=== PATIENT | female | born 1995 | race Caucasian/White ===

== ENCOUNTER 2018-06-28 20:00 | Inpatient (IN) | payer OTHER ==
[2018-07-02] MEDS ORDERED: Ondansetron PF 4 MG/2 ML Vial IVP PRN (21:35)
[2018-07-02] MEDS ORDERED: Butorphanol Tartrate 1 MG/ML VIAL SLOW IVP PRN (21:35)
[2018-07-02] MEDS ORDERED: NS / Oxytocin 40 units/1000ml 1,000 ML IV PRN (21:35)
[2018-07-02] MEDS ORDERED: Acetaminophen 500 MG TAB PO PRN (21:35)
[2018-07-02] MEDS ORDERED: Diphenoxylate HCl/Atropine Tablet PO PRN (21:35)
[2018-07-02] MEDS ORDERED: Misoprostol 200 MCG TAB PR PRN (21:35)
[2018-07-02] MEDS ORDERED: Carboprost 250 MCG/ML AMP IM PRN (21:35)
[2018-07-02] MEDS ORDERED: HYDROcodone/Acetaminophen 5/325 mg Tablet PO PRN (21:35)
[2018-07-02] MEDS ORDERED: Promethazine HCl 25 MG/ML VIAL IM PRN (21:35)
[2018-07-02] MEDS ORDERED: Ibuprofen 800 MG TAB PO PRN (21:35)
[2018-07-02] MEDS ORDERED: Lidocaine 1% (PF) 30 ML VIAL SC PRN (21:35)
[2018-07-02 21:55] VITALS: BMI 35.6
[2018-07-02] MEDS: Lactated Ringer's 1,000 ML IV SCH (22:20)
[2018-07-02 22:37] LABS: Hemoglobin 10.6 g/dL (12.0-16.0); Mean Corpuscular HGB CONC 33.8 g/dL (32.0-36.0); Mean Corpuscular Hemoglobin 29.1 pg (27.0-31.0); Mean Corpuscular Volume 86.1 fL (78.0-98.0); Mean Platelet Volume 10.2 fL (7.4-10.4); Platelet Count 287 thou/uL (130-400); RBC Distribution Width 11.9 % (11.5-14.5); Red Blood Cell (RBC) Count 3.64 mill/uL (4.20-5.40)
[2018-07-02] MEDS: Misoprostol 100 MCG TAB VAG SCH (22:43)
[2018-07-02] MEDS: NS w/ Oxytocin 10 units 500 ML IV SCH (22:44)
[2018-07-02 22:51] LABS: ALT (SGPT) 18 U/L (8-55); AST (SGOT) 13 U/L (5-34); Albumin 3.2 g/dL (3.5-5.0); Alkaline Phosphatase 201 U/L (40-150); Anion Gap 15 mmol/L (10-20); BUN (Urea Nitrogen) 9 mg/dL (7.0-18.7); Bilirubin, Total 0.3 mg/dL (0.2-1.2); Calc. Creatinine Clearance 172 mL/min (70-130); Carbon Dioxide 19 mmol/L (22-29); Chloride 105 mmol/L (98-107); Estimated GFR-MDRD Greater than 90; Globulin 2.7 g/dL (2.4-3.5); Glucose 104 mg/dL (70-105); Potassium 4.3 mmol/L (3.5-5.1); Protein, Total 5.9 g/dL (6.0-8.3); Sodium 135 mmol/L (136-145)
[2018-07-02 23:09] LABS: HBSAg Index 0.23 S/CO (0-0.99); Hep B Surf Ag Non-Reactive S/CO (NonReactive); Syphilis Antibody Nonreactive (Nonreactive); Syphilis Antibody Index 0.03 S/CO (<1.00 Non-Reactive)
[2018-07-03] MEDS: Misoprostol 100 MCG TAB VAG SCH ×5 (04:23→16:30)
[2018-07-03] MEDS: Lactated Ringer's 1,000 ML IV SCH ×2 (04:23→08:41)
[2018-07-03] MEDS: NS w/ Oxytocin 10 units 500 ML IV SCH (05:07)
--- NOTE | 2018-07-03 07:54 | PDOC.LDHP ---
Labor and Delivery H&P Chief complaint: scheduled induction HPI: 22yo at 37w6d by LMP for IOL 2/2 CHTN and single umbilical artery with increasing BP in clinic.s/p 1 dose cytotec overnight, +painful ctx Current gestational age (weeks): 37 Due date: 07/18/18 Dating criteria: last menstrual period Grav: 1 Para: 0 Abnormal US findings: Yes (single umbilical artery) Past Medical History: CHTN no meds, hypothyroid Current medications: pre-svitlana vitamins, other (levothyroxine 75mcg) Previous surgical history: none Allergies/Adverse Reactions: Allergies Allergy/AdvReac Type Severity Reaction Status Date / Time No Known Drug Allergies Allergy Verified 07/02/18 21:38 Social history: none - Physical Exam Vital signs reviewed and normal: yes General: NAD Heart: RRR Lungs: CTAB Abdomen: gravid Extremeties: no edema FHT: category 1 (low baseline fht) [place] contractions every: 3-5min - Vaginal Exam cm dilated: 3 Effacement: 75% Station: -2 - OB Labs Blood type: O RH: positive Antibody Screen: negative HIV: negative RPR: negative HEPSAg: negative 1 hour GCT: positive 3 hour GTT: negative GBS: negative Urine drug screen: negative Rubella: immune - Assessment L&D Assessment: medically indicated induction - Plan Plan: admit to L&D, cervical ripening, labor augmentation if indicated, informed consent obtained, anesthesia consult for pain management
[2018-07-03] MEDS ORDERED: Fentanyl 4 mcg/Bup 0.1% Cadd 100 ML ONE ×2 (08:01→16:23)
[2018-07-03] MEDS ORDERED: Naloxone HCl 0.4 mg/ml Vial IVP PRN ×2 (08:44)
[2018-07-03] MEDS ORDERED: Ondansetron PF 4 MG/2 ML Vial IVP PRN ×2 (08:44→18:19)
[2018-07-03] MEDS ORDERED: Acetaminophen 325 MG TAB PO PRN (08:44)
[2018-07-03] MEDS ORDERED: ePHEDrine/0.9% NaCl/PF SYRINGE 50 mg/10 ml SLOW IVP PRN (08:44)
[2018-07-03] MEDS ORDERED: Lactated Ringer's 500 ML IV PRN (08:44)
[2018-07-03] MEDS ORDERED: Eucerin (Mineral Oil/Petrolatum,White) 30 gm Jar TOP PRN (08:44)
[2018-07-03] MEDS ORDERED: diphenhydrAMINE 50 MG/ML VIAL IVP PRN (08:44)
[2018-07-03] MEDS ORDERED: Promethazine HCl 25 MG/ML VIAL IM PRN (08:44)
[2018-07-03] MEDS ORDERED: Fentanyl 4 mcg/Bupivacaine 0.1% Cassette 100 ML EPIDURAL SCH (08:45)
[2018-07-03] MEDS ORDERED: Communication Order-Pharmacy FS SCH (08:45)
[2018-07-03] MEDS ORDERED: Bupivacaine 0.25% HCL 30 ML VIAL ONE (11:11)
[2018-07-03] MEDS ORDERED: Bupivacaine/Epinephrine 0.25% 30 ML VIAL ONE (11:11)
--- NOTE | 2018-07-03 13:18 | PDOC.LDPN ---
Labor & Delivery Progress Note - Subjective Subjective: comfortable - Objective Vital signs reviewed and normal: yes General: NAD Uterine fundus: non tender Dilation: 4 Effacement: 90% Station: -2 (at 1124 by RN) FHT: category 2, late decelerations (occasional (<50%), overall mod variability with accels) [place] contractions every: 2-5min Plan: pitocin for augmentation (IUPC in place, titrate to MVU as tolerated, inadequate pattern now)
--- NOTE | 2018-07-03 18:00 | PDOC.OPDEL ---
OB Operative/Delivery Note Delivery Dr/Surgeon: Ciera Assist: n/a Pre-Delivery Diagnosis: medically indicated induction Procedure/Post Delivery Dx: spontaneous vaginal delivery Weeks gestation: 37 Anesthesia: epidural - Findings A Sex: male Weight: 6 lb 1 oz - 1 min: 9 - 5 min: 9 - Additional Findings/Plan Placenta delivered: spontaneous Repaired Obstetrical Laceration: 1st degree (repaired for hemostasis with 2-0 vicryl) Estimated blood loss: 96cc qbl Compilations/Other Findings: 2VC noted Post delivery plan: routine recovery
[2018-07-03] MEDS ORDERED: Lanolin Ointment 7 GM TUBE TOP PRN (18:19)
[2018-07-03] MEDS ORDERED: Benzocaine/Menthol 20-0.5% 60 ML CAN TOP PRN (18:19)
[2018-07-03] MEDS ORDERED: HYDROcodone/Acetaminophen 5/325 mg Tablet PO PRN ×2 (18:19)
[2018-07-03] MEDS ORDERED: diphenhydrAMINE 25 MG CAP PO PRN (18:19)
[2018-07-03] MEDS ORDERED: Preparation H Ointment 28 GM TUBE PR PRN (18:19)
[2018-07-03] MEDS ORDERED: Bisacodyl 10 MG SUPP PR PRN (18:19)
[2018-07-03] MEDS ORDERED: NS / Oxytocin 40 units/1000ml 1,000 ML IV SCH (18:19)
[2018-07-03] MEDS ORDERED: Milk Of Magnesia 30 ML UDCUP PO PRN (18:19)
[2018-07-03] MEDS: Docusate Calcium (SURFAK) 240 MG CAP PO SCH ×2 (21:48→21:49)
[2018-07-03] MEDS: Ibuprofen 800 MG TAB PO SCH (21:49)
[2018-07-04] MEDS: Ibuprofen 800 MG TAB PO SCH ×3 (05:36→21:18)
[2018-07-04] MEDS: Ferrous Sulfate 325 MG TAB PO SCH ×3 (07:37→21:19)
--- NOTE | 2018-07-04 07:47 | PRG ---
DATE OF SERVICE: 07/04/2018 SUBJECTIVE: The patient is day #1, status post term spontaneous vaginal delivery last night. She is reporting this morning. No complaints. She is tolerating p.o., voiding on her own, having decreased lochia and good pain control. OBJECTIVE: VITAL SIGNS: Blood pressure is 111/70, temperature 97.6, pulse of 70, respiratory rate of 18. GENERAL: She appears to be in no acute distress. She is alert, oriented, cooperative, and pleasant to interact with. HEAD: Normocephalic, atraumatic. ABDOMEN: Fundus is firm. Incision is clean, dry, and intact. ASSESSMENT AND PLAN: The patient is day #1, status post a term spontaneous vaginal delivery. We will continue in-house care until tomorrow and anticipate discharge then. Job ID: [id number]
[2018-07-04 08:18] LABS: Hemoglobin 9.9 g/dL (12.0-16.0); Mean Corpuscular HGB CONC 33.5 g/dL (32.0-36.0); Mean Corpuscular Hemoglobin 29.4 pg (27.0-31.0); Mean Corpuscular Volume 87.9 fL (78.0-98.0); Mean Platelet Volume 9.8 fL (7.4-10.4); Platelet Count 234 thou/uL (130-400); RBC Distribution Width 11.9 % (11.5-14.5); Red Blood Cell (RBC) Count 3.38 mill/uL (4.20-5.40); White Blood Cell (WBC) Count 11.9 thou/uL (4.8-10.8)
[2018-07-04] MEDS ORDERED: Adacel (T-DAP) 0.5 ML SYRINGE IM ONE (09:00)
[2018-07-04] MEDS: Docusate Calcium (SURFAK) 240 MG CAP PO SCH ×2 (09:31→21:18)
[2018-07-04] MEDS: Prenatal Vitamin 1 TAB PO SCH (09:32)
[2018-07-05] MEDS: Ibuprofen 800 MG TAB PO SCH (05:53)
[2018-07-05 08:25] VITALS: BP 127/82; TEMP 97.8
[2018-07-05] MEDS: Docusate Calcium (SURFAK) 240 MG CAP PO SCH (09:49)
[2018-07-05] MEDS: Ferrous Sulfate 325 MG TAB PO SCH (09:49)
[2018-07-05] MEDS: Prenatal Vitamin 1 TAB PO SCH (09:49)
== END 2018-07-05 12:50 | disposition home or self-care (01) | DRG 807 ==
LOC: L&D 07-02 20:48 → 3SW 07-03 20:06
PROVIDERS: ADMIT Student in an Organized Health Care Education/Training Program; ATTEND Student in an Organized Health Care Education/Training Program
PROC: 10E0XZZ Delivery of Products of Conception, External Approach (ICD-10-PCS; principal; 2018-07-03)
PROC: 10907ZC Drainage of Amniotic Fluid, Therapeutic from Products of Conception, Via Natural or Artificial Opening (ICD-10-PCS; 2018-07-03)
PROC: 3E033VJ Introduction of Other Hormone into Peripheral Vein, Percutaneous Approach (ICD-10-PCS; 2018-07-03)
PROC: 3E0P7VZ Introduction of Hormone into Female Reproductive, Via Natural or Artificial Opening (ICD-10-PCS; 2018-07-03)
PROC: 0HQ9XZZ Repair Perineum Skin, External Approach (ICD-10-PCS; 2018-07-03)
DX: O10.92 Unspecified pre-existing hypertension complicating childbirth (principal); Z37.0 Single live birth; Z3A.37 37 weeks gestation of pregnancy; Q27.0 Congenital absence and hypoplasia of umbilical artery; O35.8XX0 Maternal care for other (suspected) fetal abnormality and damage, not applicable or unspecified; O70.0 First degree perineal laceration during delivery
CPT/HCPCS: 36415; 51702; 80053; 85027; 86780; 86850; 86900; 86901; 87340; J0595; J2001; J2405; J2550; S0020

== ENCOUNTER 2021-05-24 21:00 | Emergency (ER) | payer OTHER ==
[2021-05-24] MEDS ORDERED: Ibuprofen 200 MG TAB ONE (22:16)
== END 2021-05-24 22:22 | disposition home or self-care (01) ==
LOC: ERS 21:00
DX: S93.401A Sprain of unspecified ligament of right ankle, initial encounter (principal); X50.1XXA Overexertion from prolonged static or awkward postures, initial encounter; Y93.39 Activity, other involving climbing, rappelling and jumping off